=== PATIENT | male | born 1955 | race Caucasian/White ===

== ENCOUNTER 2020-01-04 07:57 | Inpatient (IN) | payer BC, OTHER ==
[2020-01-04] MEDS ORDERED: ASPIRIN 81 MG PO STA (08:14)
[2020-01-04] MEDS ORDERED: HEPARIN SODIUM,PORCINE 5,000 UNIT/ML 1 ML VIAL IV STA (08:14)
[2020-01-04] MEDS ORDERED: SODIUM CHLORIDE 0.9% 1,000 ML IV STA (08:14)
[2020-01-04] MEDS ORDERED: NITROGLYCERIN SL TABS 0.4 MG TAB SUBLINGUAL STA (08:14)
[2020-01-04] MEDS ORDERED: fentaNYL (PF) 50 MCG/ML 2 ML AMP ONE (08:30)
[2020-01-04 08:33] LABS: Basophils # (A) 0.1 k/uL (0-0.2); Basophils % (A) 1 %; Eosinophils # (A) 0.1 k/uL (0-0.7); Eosinophils % (A) 1 %; HCT 53.8 % (39.0-53.0); HGB 18.9 gm/dL (13.0-17.5); Lymphocytes # (A) 2.6 k/uL (1.0-4.8); Lymphocytes % (A) 21 %; MCH 31.9 pg (25.0-35.0); MCHC 35.2 g/dL (31.0-37.0); MCV 90.4 fL (80.0-100.0); Mean Platelet Volume 6.8; Monocytes # (A) 0.7 k/uL (0-1.0); Monocytes % (A) 5 %; Neutrophils # (A) 8.6 k/uL (1.3-7.7); Neutrophils % (A) 69 %; Platelet Count 305 k/uL (150-450); RBC 5.95 m/uL (4.30-5.90); RDW 12.9 % (11.5-15.5); WBC 12.4 k/uL (3.8-10.6)
--- NOTE | 2020-01-04 08:37 | XR ---
EXAMINATION TYPE: XR chest 1V portable DATE OF EXAM: 01/04/2020 HISTORY: Shortness of breath. COMPARISON: None. TECHNIQUE: Single view of the chest is submitted. FINDINGS: Demonstrated are scattered senescent parenchymal change. There is no evidence for focal infiltrate. The heart is stable. Hilar and mediastinal structures are within normal limits. Degenerative changes are seen of the dorsal spine. IMPRESSION: 1. Chronic changes without evidence for acute pulmonary disease.
--- NOTE | 2020-01-04 08:37 | ED ---
Chest Pain HPI - General Chief Complaint: Chest Pain Stated Complaint: Chest pain, L arm numbness Time Seen by Provider: 01/04/20 08:07 Source: patient, RN notes reviewed Mode of arrival: ambulatory Limitations: no limitations - History of Present Illness Initial Comments: This is a 64-year-old male with a benign past medical history was a nonsmoker been having intermittent episodes of midsternal chest pain it feels like indigestion for the past 2 days. He has been intermittent. He states this morning it recurred and was 78/10 severity associated with some diaphoresis and shortness of breath. It does radiate toward the left arm. No prior episodes of this in the past. No overt nausea vomiting he states that first started it was lasting perhaps 1-2 minutes. Now is lasting longer when it comes on. Currently his pain is 6-7/10 in severity and later in the interview it did go to 0 briefly. No other complaints no other modifying factors MD Complaint: chest pain - Related Data Home Medications Medication Instructions Recorded Confirmed Cholecalciferol [Vitamin D3 (25 1,000 unit PO DAILY 01/04/20 01/04/20 Mcg = 1000 Iu)] Fish Oil/Dha/Epa [Fish Oil 1,200 1 cap PO DAILY 01/04/20 01/04/20 mg Fish Oil] Allergies Allergy/AdvReac Type Severity Reaction Status Date / Time No Known Allergies Allergy Verified 01/04/20 08:33 Review of Systems ROS Statement: Those systems with pertinent positive or pertinent negative responses have been documented in the HPI. ROS Other: All systems not noted in ROS Statement are negative. EKG Findings - EKG Results: EKG: interpreted by HANNAH, sinus rhythm (Sinus rhythm rate of 1:15 VT interval 176 QRS duration 94 QT since QTC 360/498 there is evidence of septal infarct with evidence of ischemic changes in the inferior and anterolateral leads.) Past Medical History Past Medical History: Skin Disorder Additional Past Medical History / Comment(s): Pre-cancer cell tx's History of Any Multi-Drug Resistant Organisms: None Reported Additional Past Surgical History / Comment(s): Pilonidal cyst Past Anesthesia/Blood Transfusion Reactions: No Reported Reaction Past Psychological History: No Psychological Hx Reported Smoking Status: Never smoker Past Alcohol Use History: Occasional, Rare Past Drug Use History: None Reported - Past Family History Mother Family Medical History: Cancer Additional Family Medical History / Comment(s): Brain CA General Exam - General Exam Comments Initial Comments: This is a well-developed well-nourished awake alert oriented times 3 male Limitations: no limitations General appearance: alert, anxious Head exam: Present: atraumatic, normocephalic, normal inspection Eye exam: Present: normal appearance, PERRL, EOMI. Absent: scleral icterus, conjunctival injection, periorbital swelling ENT exam: Present: normal exam, mucous membranes moist Neck exam: Present: normal inspection, full ROM, other (No stridor JVD or bruits). Absent: tenderness, meningismus, lymphadenopathy Respiratory exam: Present: normal lung sounds bilaterally. Absent: respiratory distress, wheezes, rales, rhonchi, stridor Cardiovascular Exam: Present: regular rate, normal rhythm, normal heart sounds. Absent: systolic murmur, diastolic murmur, rubs, gallop, clicks GI/Abdominal exam: Present: soft, normal bowel sounds. Absent: distended, tenderness, guarding, rebound, rigid Extremities exam: Present: normal inspection, full ROM, normal capillary refill. Absent: tenderness, pedal edema, joint swelling, calf tenderness Back exam: Present: normal inspection Neurological exam: Present: alert, oriented X3, CN II-XII intact Psychiatric exam: Present: normal affect, normal mood Skin exam: Present: warm, dry, intact, normal color. Absent: rash Course Vital Signs 01/04/20 08:01 Temperature 97.8 F Pulse Rate 110 H Respiratory 18 Rate Blood Pressure 214/147 O2 Sat by Pulse 100 Oximetry - Reevaluation(s) Reevaluation #1: 01/04/20 08:34 A STEMI alert was called. Dr. Mckeon did respond to the emergency department. Patient will go to the [facility]. Reevaluation #2: 01/04/20 08:35 I did discuss the findings with the patient as well as with his who was present. Reevaluation #3: 01/04/20 08:35 No old EKGs for comparison Reevaluation #4: 01/04/20 08:35 I did discuss the case with Dr. Rashid who does cover Dr. Coleman. Critical Care Time Critical Care Time: Yes Total Critical Care Time: 31 Critical Care Time: This does include initial presentation with history physical orders of labs and x-rays. Review of the EKG discussion with Dr. Mckeon and with Dr. Rashid multiple reevaluation the patient prior to discharge from the ER. Review of old charting that was available and documentation of the above. Disposition Clinical Impression: ST elevation myocardial infarction (STEMI), Chest pain, Unstable angina pectoris Disposition: ADMITTED IP TO THIS HOSP Condition: Serious Referrals: Jeny Montemayor MD [Primary Care Provider] - 1-2 days
--- NOTE | 2020-01-04 08:41 | P.CRDCN ---
History of Present Illness Consult date: 01/04/20 History of present illness: CHIEF COMPLAINT: Chest pain HISTORY OF PRESENT ILLNESS: 64 year old male who denies any significant past medical history. 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 Patient states he began having chest pain on Tuesday. He states that he thought the pain was related to heartburn so he did not seek medical treatment. However he states the pain persisted so he came to the emergency room for further evaluation. He denies radiation. He denies nausea or vomiting. Denies shortness of breath. The patient had an EKG completed with evidence of a STEMI. At the time of my examination in the ER, he is not having chest pain. DIAGNOSTICS: EKG reveals sinus rhythm with ST elevation in lead I, AVL, V1-V4 Chest xray chronic changes without evidence for acute pulmonary disease Laboratory data: Unavailable at the time of this dictation Current home cardiac medications include none REVIEW OF SYSTEMS: At the time of my exam: CONSTITUTIONAL: Denies fever or chills. HEENT: Denies blurred vision, vision changes, or eye pain. Denies hemoptysis CARDIOVASCULAR: Denies chest pain, orthopnea, PND or palpitations RESPIRATORY: No shortness of breath. GASTROINTESTINAL: Denies abdominal pain. Denies nausea or vomiting. HEMATOLOGIC: Denies bleeding disorders. GENITOURINARY: Denies any blood in urine. SKIN: Denies pruitis. Denies rash. PHYSICAL EXAM: VITAL SIGNS: Reviewed. GENERAL: Well-developed in no acute distress. HEENT: Head is normocephalic. Pupils are equal, round. Sclerae anicteric. Mucous membranes of the mouth are moist. Neck supple. No JVD or thyromegaly LUNGS: Respirations even and unlabored. Lungs essentially clear to auscultation bilaterally. HEART: Regular rate and rhythm. S1 and S2 heard. ABDOMEN: Soft. Nondistended. Nontender. EXTREMITIES: Normal range of motion. No clubbing or cyanosis. Peripheral pulses intact. No lower extremity edema NEUROLOGIC: Awake and alert. Oriented x 3. ASSESSMENT: Chest pain STEMI PLAN: Patient examined in the ER by Dr. Mckeon. Patients EKG shows evidence of STEMI. Patient was advised to undergo emergent cardiac catheterization. The risks and benefits were explained to the patient in detail. The patient is agreeable. Nurse practitioner note has been reviewed by physician. Signing provider agrees with the documented findings, assessment, and plan of care. Past Medical History Past Medical History: Skin Disorder Additional Past Medical History / Comment(s): Pre-cancer cell tx's History of Any Multi-Drug Resistant Organisms: None Reported Additional Past Surgical History / Comment(s): Pilonidal cyst Past Anesthesia/Blood Transfusion Reactions: No Reported Reaction Past Psychological History: No Psychological Hx Reported Smoking Status: Never smoker Past Alcohol Use History: Occasional, Rare Past Drug Use History: None Reported - Past Family History Mother Family Medical History: Cancer Additional Family Medical History / Comment(s): Brain CA Medications and Allergies Home Medications Medication Instructions Recorded Confirmed Type Cholecalciferol [Vitamin D3 (25 1,000 unit PO DAILY 01/04/20 01/04/20 History Mcg = 1000 Iu)] Fish Oil/Dha/Epa [Fish Oil 1,200 1 cap PO DAILY 01/04/20 01/04/20 History mg Fish Oil] Allergies Allergy/AdvReac Type Severity Reaction Status Date / Time No Known Allergies Allergy Verified 01/04/20 08:33 Physical Exam Vitals: Vital Signs Temp Pulse Resp BP Pulse Ox 01/04/20 08:01 97.8 F 110 H 18 214/147 100 Intake and Output 01/03/20 01/04/20 01/04/20 22:59 06:59 14:59 Other: Weight 84.822 kg Results 01/04/20 08:22 01/04/20 08:22 Current Medications Generic Name Dose Route Start Last Admin Trade Name Freq PRN Reason Stop Dose Admin Sodium Chloride 1,000 mls @ 100 mls/hr 01/04/20 08:14 01/04/20 08:24 Saline 0.9% IV 01/04/20 18:13 100 mls/hr .Q10H STA Administration Intake and Output 01/03/20 01/04/20 01/04/20 22:59 06:59 14:59 Other: Weight 84.822 kg Patient Weight 01/05/20 06:59 Weight 84.822 kg
[2020-01-04 08:42] LABS: ALT 31 U/L (4-49); African American GFR (CKD) >90 (>60 ml/min/1.73 sqM); Albumin 5.1 g/dL (3.5-5.0); Anion Gap 13 mmol/L; Blood Urea Nitrogen 14 mg/dL (9-20); Calcium 9.9 mg/dL (8.4-10.2); Carbon Dioxide 23 mmol/L (22-30); Chloride 103 mmol/L (98-107); Creatine Kinase 409 U/L (55-170); Glucose 130 mg/dL (74-99); Lipase 72 U/L (23-300); Non-African American GFR(CKD) 79 (>60 ml/min/1.73 sqM); Sodium 139 mmol/L (137-145); Total Bilirubin 1.2 mg/dL (0.2-1.3); Total Protein 9.4 g/dL (6.3-8.2)
[2020-01-04] MEDS ORDERED: IV FLUID CONTINUATION 1,000 ML IV ONE (08:44)
[2020-01-04 08:45] LABS: AST 83 U/L (17-59); Alkaline Phosphatase 109 U/L (38-126); Magnesium 2.3 mg/dL (1.6-2.3); Potassium 4.5 mmol/L (3.5-5.1)
[2020-01-04] MEDS ORDERED: ATORVASTATIN 80 MG TAB PO STA (08:46)
[2020-01-04] MEDS ORDERED: fentaNYL (PF) 50 MCG/ML 2 ML AMP IVP ONE (08:53)
[2020-01-04] MEDS ORDERED: LIDOCAINE 1% INJ 10MG/ML (20 ML MDV) SQ ONE (08:56)
[2020-01-04] MEDS ORDERED: MIDAZOLAM 2 MG/2 ML VIAL IVP ONE (08:57)
[2020-01-04 08:59] LABS: D-Dimer 0.24 mg/L FEU (<0.60); Partial Thromboplastin Time 23.6 sec (22.0-30.0); Prothrombin Time 10.6 sec (9.0-12.0)
[2020-01-04] MEDS ORDERED: VERAPAMIL SYRINGE (5 MG/10 ML) INTRAARTER ONE (09:00)
[2020-01-04] MEDS ORDERED: TICAGRELOR 90 MG TAB ONE (09:08)
[2020-01-04] MEDS ORDERED: BIVALIRUDIN BOLUS 250 MG/50 ML IV ONE (09:10)
[2020-01-04] MEDS ORDERED: TICAGRELOR 90 MG TAB PO ONE (09:10)
[2020-01-04] MEDS ORDERED: BIVALIRUDIN 250 MG in SODIUM CHLORIDE 0.9% 50 ML IV ONE (09:11)
[2020-01-04] MEDS ORDERED: NITROGLYCERIN 1000MCG/10ML SYRINGE INTRACORON ONE (09:12)
[2020-01-04] MEDS ORDERED: IOPAMIDOL-370 125ML BTL INJ ONE (09:18)
[2020-01-04] MEDS ORDERED: IOPAMIDOL-370 100ML BTL INJ ONE (09:30)
[2020-01-04] MEDS ORDERED: ZOLPIDEM 5 MG TAB PO PRN (09:44)
[2020-01-04] MEDS ORDERED: RX INFO: IV CONTRAST WAS GIVEN 1 EACH MISC MISCELLANE PRN (09:44)
[2020-01-04] MEDS ORDERED: MAG HYDROX/AL HYDROX/SIMETH 30 ML CUP PO PRN (09:44)
[2020-01-04] MEDS ORDERED: NITROGLYCERIN SL TABS 0.4 MG TAB SUBLINGUAL PRN (09:44)
[2020-01-04] MEDS ORDERED: ATROPINE SULFATE 0.1 MG/ML 10ML SYRINGE IV PRN (09:44)
[2020-01-04] MEDS ORDERED: SODIUM CHLORIDE 0.9% 1,000 ML IV SCH (09:45)
--- NOTE | 2020-01-04 13:13 | PTCA ---
PERCUTANEOUSTRANS CORORONARY ANGIOGRAPHY Mr. Vaughn is a 64-year-old male who presented with an acute anterior myocardial infarction and underwent cardiac catheterization and was found to have subtotally occluded proximal LAD. In view of that, recommendation made regarding angioplasty and stenting. The procedures, risks, and complication were discussed with the patient who was in full understanding and agreement. PROCEDURE: A 0.014 balanced medium weight J-wire was advanced across the lesion, positioned in the distal LAD. Subsequently 2.5 x 12 mm NC balloon was advanced and one inflation at 10 atmospheres was done. Following that, the balloon was removed and a 2.75 x 18 mm Xience Lorna stent was deployed at 16 atmospheres. Following that the balloon was removed. A 3.0 x 12 mm NC Trek balloon was advanced and one inflation at 14 atmospheres was done in the proximal segment of the stent. Following that, right coronary angiography was performed. Following that, catheter and sheath were removed. Hemostasis was obtained with deployment of a TR band. There were no immediate complications. Patient was returned to his room in stable condition. Of note, the patient received Angiomax per protocol as well as oral loading dose of Brilinta. His chest discomfort resolved at the end of the procedure. RESULTS: Successful stenting of the proximal LAD with reduction of stenosis from 99% to 0%. RECOMMENDATION: Patient will be continued on aspirin, Brilinta, beta blockers and statin. The importance of dual antiplatelet treatment were discussed with the patient and his family and they consented and are in agreement. DURATION OF SEDATION: 34 minutes. MMREGINEL / GEON: [id number] /
--- NOTE | 2020-01-04 13:13 | CC ---
CARDIAC CATHETERIZATION REPORT Mr. Vaughn is a 64-year-old male with no prior documented history of coronary artery disease who presented with an acute episode of chest discomfort with evidence consistent with anterior wall myocardial infarction. In view of that, recommendation was made regarding cardiac catheterization. The procedures, risks, and complications were discussed with the patient who is in full understanding and agreement. PROCEDURE: Patient was brought to [facility] maintenance lab[facility] in a fasting semi-sedated state after receiving fentanyl and Benadryl and achieving moderate conscious sedated state. Using Xylocaine anesthesia and Seldinger technique, a 6-Brazilian sheath was introduced in the right radial artery. Left coronary angiography performed using 6-Brazilian LBU 3.75 guiding catheter after obtaining images of the left anterior descending artery and performing angioplasty and stenting. A 5-Brazilian 3.5 bend right Mari catheter was introduced into the system and images of the right coronary artery was performed, the right Mari catheter was used to cross the aortic valve and left ventricular end-diastolic pressure was calculated. Next, the catheter and sheath were removed. Hemostasis was obtained with deployment of a TR band. There was no immediate complication. Patient is returned to his room in stable condition. FINDINGS: LEFT MAIN: This is a large-sized vessel, bifurcating into left circumflex, left main descending artery. Left main coronary artery has no evidence of high-grade stenosis. LEFT ANTERIOR DESCENDING ARTERY: This is a large-sized vessel reaching toward the apex with a wraparound apex segment giving rise to a large diagonal branch. In the proximal LAD, there is tubular lesion of 99% stenosis with slow flow in the distal LAD. LEFT CIRCUMFLEX: This is a nondominant vessel giving rise to 3 obtuse marginal branches, the second and 3rd ones are the largest in caliber. The left circumflex as well as branches have no evidence of obstructive coronary artery disease. RIGHT CORONARY ARTERY: This is a large dominant vessel bifurcating into distally PDA and posterolateral segmental branches. The right coronary artery as well as branches have no evidence of obstructive coronary artery disease. LEFT VENTRICULOGRAM: Left ventriculogram was not performed. HEMODYNAMICS: There was no gradient across the aortic valve. The ventricular end-diastolic pressure was 6-10 mmHg. CONCLUSION: Subtotally occluded proximal LAD with slow flow in the distal vessel. RECOMMENDATION: In view of finding anatomy, I recommend proceeding with angioplasty and stenting of the left anterior descending artery. The procedures, risks, benefits and complication were discussed with the patient who is in full understanding and agreement. MMODL / IJN: [id number] /
[2020-01-04 13:50] VITALS: BMI 26.0
[2020-01-04] MEDS: METOPROLOL TARTRATE 25 MG TAB PO SCH ×2 (14:12→21:52)
--- NOTE | 2020-01-04 15:58 | P.HPIM ---
History of Present Illness H&P Date: 01/04/20 Chief Complaint: Chest pain Hieu Boyd, is a 64-year-old male, who presented to [facility] emergency room with a chief complaint of chest pain, patient stated that he has been having midsternal discomfort for the last 2 days on and off this morning patient had worse pain up to 8-10 in severity, patient was also having shortness of breath and sweating patient decided to come to emergency room. 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 Patient was seen and examined in the ICU post procedure he is alert and oriented 3 in no apparent distress he is currently chest pain-free he denies any symptoms there is no fever or chills no headache or dizziness no chest pain no shortness of breath no cough no nausea or vomiting no abdominal pain no diarrhea no blood in the stools no burning with urination no frequency or urgency and no hematuria. Patient denies any previous history of coronary artery disease he denies any significant past medical history. He has a known history of diverticulosis, and history of colon polyps otherwise he denies any significant history he does not take any prescription medications at home he stated that he never smoked in the past. Past Medical History Past Medical History: Skin Disorder Additional Past Medical History / Comment(s): Pre-cancer cell tx's History of Any Multi-Drug Resistant Organisms: None Reported Additional Past Surgical History / Comment(s): Pilonidal cyst Past Anesthesia/Blood Transfusion Reactions: No Reported Reaction Smoking Status: Never smoker - Past Family History Brother(s) Family Medical History: AICD/Pacemaker, Diabetes Mellitus Mother Family Medical History: Cancer Additional Family Medical History / Comment(s): Brain CA Medications and Allergies Home Medications Medication Instructions Recorded Confirmed Type Cholecalciferol [Vitamin D3 (25 1,000 unit PO DAILY 01/04/20 01/04/20 History Mcg = 1000 Iu)] Fish Oil/Dha/Epa [Fish Oil 1,200 1 cap PO DAILY 01/04/20 01/04/20 History mg Fish Oil] Allergies Allergy/AdvReac Type Severity Reaction Status Date / Time No Known Allergies Allergy Verified 01/04/20 08:33 Physical Exam Vitals: Vital Signs Temp Pulse Pulse Resp BP BP Pulse Ox 01/04/20 15:00 92 12 175/111 98 01/04/20 14:00 89 14 164/97 98 01/04/20 13:29 87 98 01/04/20 13:00 94 17 170/99 98 01/04/20 12:00 98.0 F 92 14 98 01/04/20 11:31 94 18 134/91 98 01/04/20 11:29 87 134/91 99 01/04/20 10:30 94 18 125/62 97 01/04/20 10:16 93 18 137/76 96 01/04/20 10:00 92 18 138/77 96 01/04/20 09:46 97.6 F 89 18 140/80 96 01/04/20 08:52 97.8 F 106 H 18 100 01/04/20 08:01 97.8 F 110 H 18 214/147 100 Intake and Output 01/04/20 01/04/20 01/04/20 06:59 14:59 22:59 Intake Total 631 Output Total 600 Balance 31 Intake: IV 295 Sodium Chloride 0.9% 1, 225 000 ml @ 75 mls/hr IV . [id number] [facility] Rx#:[id number] Oral 336 Output: Urine 600 Other: Weight 84.822 kg 84.822 kg In general patient is alert and oriented 3 in no apparent distress HEENT head normocephalic and atraumatic Neck is supple no JVD no goiter no lymphadenopathy no carotid bruit Chest exam is clear to auscultation no crackles no wheezing Cardiac exam reveals regular heart sounds S1 and S2 no gallops no murmurs Abdomen is soft nontender no organomegaly with normal bowel sounds Extremity exam reveals no edema no cyanosis or clubbing Neurological examination reveals no gross focal deficit Results CBC & Chem 7: 01/04/20 08:22 01/04/20 08:22 Labs: Abnormal Lab Results - Last 24 Hours (Table) 01/04/20 01/04/20 01/04/20 Range/Units 08:22 08:22 08:22 WBC 12.4 H (3.8-10.6) k/uL RBC 5.95 H (4.30-5.90) m/uL Hgb 18.9 H (13.0-17.5) gm/dL Hct 53.8 H (39.0-53.0) % Neutrophils # 8.6 H (1.3-7.7) k/uL Glucose 130 H (74-99) mg/dL AST 83 H (17-59) U/L Creatine Kinase 409 H (55-170) U/L Troponin I 2.580 H* (0.000-0.034) ng/mL Total Protein 9.4 H (6.3-8.2) g/dL Albumin 5.1 H (3.5-5.0) g/dL 01/04/20 Range/Units 12:50 WBC (3.8-10.6) k/uL RBC (4.30-5.90) m/uL Hgb (13.0-17.5) gm/dL Hct (39.0-53.0) % Neutrophils # (1.3-7.7) k/uL Glucose (74-99) mg/dL AST (17-59) U/L Creatine Kinase (55-170) U/L Troponin I 4.920 H* (0.000-0.034) ng/mL Total Protein (6.3-8.2) g/dL Albumin (3.5-5.0) g/dL Thrombosis Risk Factor Assmnt - Choose All That Apply Each Factor Represents 1 point: Acute CO Other Risk Factors: No Thrombosis Risk Factor Assessment Total Risk Factor Score: 1 Thrombosis Risk Factor Assessment Level: Low Risk Assessment and Plan Plan: ST elevation myocardial infarction Patient underwent cardiac catheterization with angioplasty and stent placement to the proximal LAD Currently he is admitted to intensive care unit he was started on aspirin, Lipitor, lisinopril, Lopressor, Brillinta, Aldactone, and sublingual nitroglycerin Cardiology are following Will follow during this admission
--- NOTE | 2020-01-04 18:34 | LTR ---
01/04/2020 RE: Hieu Vaughn (53) Dear Dr. Montemayor: I had the pleasure to perform cardiac catheterization, coronary angioplasty and stenting on Mr. Vaughn at [facility] on 01/04/2020. A full copy of the procedure note will be forwarded to you. Briefly, he underwent successful stenting of his proximal LAD. I am hopeful that this procedure will stabilize his status. I will keep you updated on his progress. Thank you again for allowing me to participate in the management of his care. Please free free to call with any questions. Sincerely yours, Shan Mckeon M.D. JS / SHELLY: [id number] /
[2020-01-04] MEDS: TICAGRELOR 90 MG TAB PO SCH (21:52)
[2020-01-04] MEDS: ATORVASTATIN 80 MG TAB PO SCH (21:52)
[2020-01-05 06:48] LABS: Glucose,Whole Blood 368 mg/dL (75-99)
[2020-01-05] MEDS ORDERED: SODIUM BICARB 8.4% 50 ML SYR (1 MEQ/ML) ONE ×2 (08:30→08:35)
[2020-01-05] MEDS: METOPROLOL TARTRATE 25 MG TAB PO SCH ×2 (10:13→20:04)
[2020-01-05] MEDS: TICAGRELOR 90 MG TAB PO SCH ×2 (10:14→20:04)
[2020-01-05] MEDS: SPIRONOLACTONE 25 MG TAB PO SCH (10:14)
[2020-01-05] MEDS: ASPIRIN 81 MG PO SCH (10:14)
[2020-01-05 10:25] LABS: African American GFR (CKD) >90 (>60 ml/min/1.73 sqM); Anion Gap 9 mmol/L; Blood Urea Nitrogen 14 mg/dL (9-20); Calcium 9.6 mg/dL (8.4-10.2); Carbon Dioxide 26 mmol/L (22-30); Chloride 104 mmol/L (98-107); Cholesterol 266 mg/dL (<200); Glucose 124 mg/dL (74-99); HDL Cholesterol 56 mg/dL (40-60); LDL Cholesterol,Calculated 177 mg/dL (0-99); Non-African American GFR(CKD) 79 (>60 ml/min/1.73 sqM); Potassium 4.3 mmol/L (3.5-5.1); Sodium 139 mmol/L (137-145); Triglycerides 167 mg/dL (<150)
[2020-01-05 11:20] LABS: Glucose,Whole Blood 379 mg/dL (75-99)
[2020-01-05 11:53] LABS: Glucose,Whole Blood 104 mg/dL (75-99)
--- NOTE | 2020-01-05 12:00 | ECHOF ---
Referral Reason:mi MEASUREMENTS -------- HEIGHT: 180.3 cm WEIGHT: 86.2 kg BP: IVSd: 1.4 cm (0.6 - 1.1) LVIDd: 4.1 cm (3.9 - 5.3) LVPWd: 1.3 cm (0.6 - 1.1) EDV(Teich): 75 ml IVSs: 1.7 cm LVIDs: 3.6 cm LVPWs: 1.5 cm %IVS Thck: 21 % ESV(Teich): 54 ml EF(Teich): 28 % %FS: 13 % SV(Teich): 21 ml RVIDd: 1.8 cm (< 3.3) IVC: 18.21 mm LVLd A4C: 7.8 cm LVEDV MOD A4C: 74 ml LVLs A4C: 8.0 cm LVESV MOD A4C: 47 ml LVEF MOD A4C: 36 % SV MOD A4C: 27 ml LALs A4C: 4.4 cm LAAs A4C: 12.5 cm LAESV A-L A4C: 30 ml LAESV MOD A4C: 27 ml LALs A2C: 4.1 cm LAAs A2C: 14.7 cm LAESV A-L A2C: 45 ml LAESV MOD A2C: 42 ml LAESV(A-L): 38 ml LAESV Index (A-L): 18.53 ml/m Ao Diam: 3.1 cm (2.0 - 3.7) LA Diam: 2.9 cm (2.7 - 3.8) AV Cusp: 1.9 cm (1.5 - 2.6) EPSS: 0.4 cm MV E Ike: 0.78 m/s MV DecT: 169 ms MV Dec [place]: 4.6 m/s MV A Ike: 0.77 m/s MV E/A Ratio: 1.01 MV PHT: 49 ms MR Vmax: 2.79 m/s MR maxP.04 mmHg AV Vmax: 1.01 m/s AV maxP.08 mmHg TR Vmax: 0.89 m/s TR maxP.15 mmHg RAP: 5.00 mmHg RVSP: 8.15 mmHg MV EF SLOPE: 136.78 mm/s (70 - 150) MV EXCURSION: 16.31 mm (> 18.000) FINDINGS -------- This was a technically adequate study. The left ventricular size is normal. There is moderate concentric left ventricular hypertrophy. O verall left ventricular systolic function is moderate-severely impaired with, an EF between 30 - 35 % . Normal LAP Grade 1 Diastolic Dysfunction. Apical anterior LV wall motion is hypokinetic. Api kaylin lateral LV wall motion is hypokinetic. Apical inferior LV wall motion is hypokinetic. Apica l septum LV wall motion is hypokinetic. The right ventricle is normal in size. The left atrial size is normal. Normal LA size by volume 22+/-6 ml/m2. The right atrial size is normal. Lumason used The aortic valve was not well visualized. The mitral valve is normal. There is trace mitral regurgitation. The tricuspid valve appears structurally normal. Trace tricuspid regurgitation present. Right brennon tricular systolic pressure is normal at < 35 mmHg. The pulmonic valve was not well visualized. The aortic root size is normal. Normal inferior vena cava with normal inspiratory collapse consistent with estimated right atrial pre ssure of 5 mmHg. There is no pericardial effusion. CONCLUSIONS -------- 1. The left ventricular size is normal. 2. There is moderate concentric left ventricular hypertrophy. 3. Overall left ventricular systolic function is moderate-severely impaired with, an EF between 30 - 35 %. 4. Normal LAP Grade 1 Diastolic Dysfunction. 5. Apical anterior LV wall motion is hypokinetic. 6. Apical lateral LV wall motion is hypokinetic. 7. Apical inferior LV wall motion is hypokinetic. 8. Apical septum LV wall motion is hypokinetic. 9. There is trace mitral regurgitation. 10. Trace tricuspid regurgitation present. 11. There is no pericardial effusion. NET PROGRAMMER: Korina Livingston [facility]
--- NOTE | 2020-01-05 14:08 | P.PN ---
Subjective Progress Note Date: 01/05/20 CHIEF COMPLAINT: Chest pain HISTORY OF PRESENT ILLNESS: Patient is status post cardiac catheterization with PCI to the LAD. Patient examined this morning at the bedside. Patient denies chest pain or pressure. He denies shortness of breath. Patient has been up ambulating in his room. Vital signs are stable. Echocardiogram computed reveals EF 30-35% LV wall hypokinesis, trace mitral regurgitation and trace tricuspid regurgitation. PHYSICAL EXAM: VITAL SIGNS: Reviewed. GENERAL: Well-developed in no acute distress. HEENT: Head is normocephalic. Pupils are equal, round. Sclerae anicteric. Mucous membranes of the mouth are moist. Neck supple. No JVD or thyromegaly LUNGS: Respirations even and unlabored. Lungs essentially clear to auscultation bilaterally. HEART: Regular rate and rhythm. S1 and S2 heard. EXTREMITIES: Normal range of motion. No clubbing or cyanosis. Peripheral pulses intact. No lower extremity edema. Right radial cath site with pulse present. NEUROLOGIC: Awake and alert. Oriented x 3. ASSESSMENT: Chest pain STEMI, status post PCI to LAD Ischemic cardiomyopathy, EF 30-35% PLAN: Continue current cardiac medications Anticipate discharge home tomorrow if patient remains stable Nurse practitioner note has been reviewed by physician. Signing provider agrees with the documented findings, assessment, and plan of care. Objective - Vital Signs Vital signs: Vital Signs Temp 97.8 F 01/05/20 08:00 Pulse 94 01/05/20 08:00 Resp 20 01/05/20 08:00 BP 135/76 01/05/20 08:00 Pulse Ox 98 01/05/20 08:00 Intake & Output 01/04/20 01/05/20 01/05/20 18:59 06:59 18:59 Intake Total 1553 550 360 Output Total 1600 500 Balance -47 50 360 Weight 84.822 kg 86.4 kg Intake: IV 595 375 Sodium Chloride 0.9% 1, 525 375 000 ml @ 75 mls/hr IV . [id number] [facility] Rx#:[id number] Oral 958 175 360 Output: Urine 1600 500 Other: Voiding Method Toilet Toilet # Voids 2 - Labs CBC & Chem 7: 01/04/20 08:22 01/05/20 09:36 Labs: Abnormal Lab Results - Last 24 Hours (Table) 01/04/20 01/04/20 01/05/20 Range/Units 16:04 20:19 06:46 Glucose (74-99) mg/dL POC Glucose (mg/dL) 368 H (75-99) mg/dL Troponin I 5.910 H* 5.840 H* (0.000-0.034) ng/mL Triglycerides (<150) mg/dL Cholesterol (<200) mg/dL LDL Cholesterol, Calc (0-99) mg/dL 01/05/20 01/05/20 01/05/20 Range/Units 09:36 11:19 11:51 Glucose 124 H (74-99) mg/dL POC Glucose (mg/dL) 379 H 104 H (75-99) mg/dL Troponin I (0.000-0.034) ng/mL Triglycerides 167 H (<150) mg/dL Cholesterol 266 H (<200) mg/dL LDL Cholesterol, Calc 177 H (0-99) mg/dL
--- NOTE | 2020-01-05 15:28 | P.PN ---
Subjective Progress Note Date: 01/05/20 Hieu Boyd, is a 64-year-old male, who presented to [facility] emergency room with a chief complaint of chest pain, patient stated that he has been having midsternal discomfort for the last 2 days on and off this morning patient had worse pain up to 8-10 in severity, patient was also having shortness of breath and sweating patient decided to come to emergency room. 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 Patient was seen and examined in the ICU post procedure he is alert and oriented 3 in no apparent distress he is currently chest pain-free he denies any symptoms there is no fever or chills no headache or dizziness no chest pain no shortness of breath no cough no nausea or vomiting no abdominal pain no diarrhea no blood in the stools no burning with urination no frequency or urgency and no hematuria. Patient denies any previous history of coronary artery disease he denies any significant past medical history. He has a known history of diverticulosis, and history of colon polyps otherwise he denies any significant history he does not take any prescription medications at home he stated that he never smoked in the past. On 01/05/2020 patient was seen and examined on the telemetry floor he is alert and oriented 3 in no apparent distress there is no fever or chills no headache or dizziness no chest pain no shortness of breath no cough no nausea or vomiting no abdominal pain no diarrhea and no urinary symptoms Objective - Vital Signs Vital signs: Vital Signs Temp 97.8 F 01/05/20 08:00 Pulse 80 01/05/20 12:00 Resp 20 01/05/20 12:00 BP 122/67 01/05/20 12:00 Pulse Ox 97 01/05/20 12:00 Intake & Output 01/04/20 01/05/20 01/05/20 18:59 06:59 18:59 Intake Total 1553 550 360 Output Total 1600 500 Balance -47 50 360 Weight 84.822 kg 86.4 kg Intake: IV 595 375 Sodium Chloride 0.9% 1, 525 375 000 ml @ 75 mls/hr IV . [id number] [facility] Rx#:[id number] Oral 958 175 360 Output: Urine 1600 500 Other: Voiding Method Toilet Toilet # Voids 2 1 - Exam In general patient is alert and oriented 3 in no apparent distress HEENT head normocephalic and atraumatic Neck is supple no JVD no goiter no lymphadenopathy no carotid bruit Chest exam is clear to auscultation no crackles no wheezing Cardiac exam reveals regular heart sounds S1 and S2 no gallops no murmurs Abdomen is soft nontender no organomegaly with normal bowel sounds Extremity exam reveals no edema no cyanosis or clubbing Neurological examination reveals no gross focal deficit - Labs CBC & Chem 7: 01/04/20 08:22 01/05/20 09:36 Labs: Abnormal Lab Results - Last 24 Hours (Table) 01/04/20 01/04/20 01/05/20 Range/Units 16:04 20:19 06:46 Glucose (74-99) mg/dL POC Glucose (mg/dL) 368 H (75-99) mg/dL Troponin I 5.910 H* 5.840 H* (0.000-0.034) ng/mL Triglycerides (<150) mg/dL Cholesterol (<200) mg/dL LDL Cholesterol, Calc (0-99) mg/dL 01/05/20 01/05/20 01/05/20 Range/Units 09:36 11:19 11:51 Glucose 124 H (74-99) mg/dL POC Glucose (mg/dL) 379 H 104 H (75-99) mg/dL Troponin I (0.000-0.034) ng/mL Triglycerides 167 H (<150) mg/dL Cholesterol 266 H (<200) mg/dL LDL Cholesterol, Calc 177 H (0-99) mg/dL Assessment and Plan Plan: 1. ST elevation myocardial infarction 2. Cardiomyopathy with ejection fraction of 30-35% Patient underwent cardiac catheterization with angioplasty and stent placement to the proximal LAD Currently he is admitted to intensive care unit he was started on aspirin, Lipitor, lisinopril, Lopressor, Brillinta, Aldactone, and sublingual nitroglycerin Cardiology are following Will follow during this admission
[2020-01-05] MEDS: lisinopriL 5 MG TAB PO SCH (20:04)
[2020-01-05] MEDS: ATORVASTATIN 80 MG TAB PO SCH (20:04)
[2020-01-06 03:36] VITALS: TEMP 97.9
[2020-01-06] MEDS: METOPROLOL TARTRATE 25 MG TAB PO SCH (08:05)
[2020-01-06] MEDS: TICAGRELOR 90 MG TAB PO SCH (08:05)
[2020-01-06] MEDS: ASPIRIN 81 MG PO SCH (08:06)
[2020-01-06] MEDS: lisinopriL 5 MG TAB PO SCH (08:06)
[2020-01-06] MEDS: SPIRONOLACTONE 25 MG TAB PO SCH (08:07)
[2020-01-06 08:19] LABS: Calcium 9.5 mg/dL (8.4-10.2); Potassium 4.9 mmol/L (3.5-5.1)
[2020-01-06 08:39] LABS: Basophils # (A) 0.1 k/uL (0-0.2); Basophils % (A) 1 %; Eosinophils # (A) 0.1 k/uL (0-0.7); Eosinophils % (A) 1 %; HCT 47.8 % (39.0-53.0); Lymphocytes # (A) 1.7 k/uL (1.0-4.8); Lymphocytes % (A) 18 %; MCH 30.7 pg (25.0-35.0); MCHC 33.6 g/dL (31.0-37.0); MCV 91.5 fL (80.0-100.0); Mean Platelet Volume 6.6; Monocytes # (A) 0.4 k/uL (0-1.0); Monocytes % (A) 4 %; Neutrophils # (A) 7.1 k/uL (1.3-7.7); Neutrophils % (A) 75 %; Platelet Count 332 k/uL (150-450); RBC 5.22 m/uL (4.30-5.90); RDW 12.9 % (11.5-15.5); WBC 9.6 k/uL (3.8-10.6)
[2020-01-06 08:57] VITALS: BP 125/65; PULSE 90; RESP 20
--- NOTE | 2020-01-06 11:12 | P.DS ---
Providers Date of admission: 01/04/20 08:38 Expected date of discharge: 01/06/20 Attending physician: Cat Rashid Consults: 01/04/20 09:44 Consult Physician Routine Consulting Provider: [facility] Consult Reason/Comments: Post Interventional patient Do you want consulting provider notified?: Already Contacted Primary care physician: Jeny Montemayor [facility] Course: Discharge diagnosis 1. ST elevation myocardial infarction with stent to the LAD. Maintained on Brilinta 2. Cardiomyopathy with ejection fraction of 30-35% 3. Hyperlipidemia. Patient started on statin Hospital course Hieu Boyd, is a 64-year-old male, who presented to [facility] emergency room with a chief complaint of chest pain, patient stated that he has been having midsternal discomfort for the last 2 days on and off this morning patient had worse pain up to 8-10 in severity, patient was also having shortness of breath and sweating patient decided to come to emergency room. Patient was evaluated in the emergency room vital exam on presentation revealed a temperature of 97.8 pulse 110 respiration 18 blood pressure 214/147 pulse ox 100% on room air, EKG revealed ST elevation in anterior leads and ST depression in inferior leads patient was taken immediately to the laborer pipeline he had evidence of 99% stenosis of the mid LAD he underwent angioplasty and stent placement and was subsequently admitted to the intensive care unit, troponin level on presentation was 2.58 BNP was 4970. Patient was seen and examined in the ICU post procedure he is alert and oriented 3 in no apparent distress he is currently chest pain-free he denies any symptoms there is no fever or chills no headache or dizziness no chest pain no shortness of breath no cough no nausea or vomiting no abdominal pain no diarrhea no blood in the stools no burning with urination no frequency or urgency and no hematuria. Patient denies any previous history of coronary artery disease he denies any significant past medical history. He has a known history of diverticulosis, and history of colon polyps otherwise he denies any significant history he does not take any prescription medications at home he stated that he never smoked in the past. On 01/05/2020 patient was seen and examined on the telemetry floor he is alert and oriented 3 in no apparent distress there is no fever or chills no headache or dizziness no chest pain no shortness of breath no cough no nausea or vomiting no abdominal pain no diarrhea and no urinary symptoms On 01/06/2020 patient is alert and oriented 3. Patient states he is very eager to go home. Discussed case with cardiology nurse practitioner patient may be discharged home on new medications of aspirin lipitor lisinopril Lopressor Brilinta and Aldactone. Patient educated at length about the importance of taking his medications and compliance. Also discussed importance of follow up with cardiology and PCP for further management. Patient did verbalize understanding. At this time patient denies any chest pain or shortness of breath. Patient denies nausea vomiting or diarrhea. Patient denies any urinary burning or frequency. Patient Condition at Discharge: Stable Plan - Discharge Summary Discharge Rx Participant: Yes New Discharge Prescriptions: New Spironolactone [Aldactone] 25 mg PO DAILY 30 Days #30 tab Aspirin 81 mg PO DAILY 30 Days #30 chew Ticagrelor [Brilinta] 90 mg PO BID 30 Days #60 tab Atorvastatin [Lipitor] 80 mg PO HS 30 Days #30 tab Metoprolol Tartrate [Lopressor] 25 mg PO BID 30 Days #60 tab lisinopriL [Zestril] 5 mg PO BID 30 Days #60 tab Continue Fish Oil/Dha/Epa [Fish Oil 1,200 mg Fish Oil] 1 cap PO DAILY Cholecalciferol [Vitamin D3 (25 Mcg = 1000 Iu)] 1,000 unit PO DAILY Discharge Medication List Cholecalciferol [Vitamin D3 (25 Mcg = 1000 Iu)] 1,000 unit PO DAILY 01/04/20 [History] Fish Oil/Dha/Epa [Fish Oil 1,200 mg Fish Oil] 1 cap PO DAILY 01/04/20 [History] Aspirin 81 mg PO DAILY 30 Days #30 chew 01/06/20 [Rx] Atorvastatin [Lipitor] 80 mg PO HS 30 Days #30 tab 01/06/20 [Rx] Metoprolol Tartrate [Lopressor] 25 mg PO BID 30 Days #60 tab 01/06/20 [Rx] Spironolactone [Aldactone] 25 mg PO DAILY 30 Days #30 tab 01/06/20 [Rx] Ticagrelor [Brilinta] 90 mg PO BID 30 Days #60 tab 01/06/20 [Rx] lisinopriL [Zestril] 5 mg PO BID 30 Days #60 tab 01/06/20 [Rx] Follow up Appointment(s)/Referral(s): Shan Mckeon MD [STAFF PHYSICIAN] - 1 Week Jeny Montemayor MD [Primary Care Provider] - 1-2 days Activity/Diet/Wound Care/Special Instructions: Activity as tolerated Diet heart healthy
--- NOTE | 2020-01-06 15:00 | P.PN ---
Subjective Progress Note Date: 01/06/20 CHIEF COMPLAINT: Chest pain HISTORY OF PRESENT ILLNESS: Patient is status post cardiac catheterization with PCI to the LAD. Patient examined this morning at the bedside. Patient denies chest pain or pressure. He denies shortness of breath. Patient has been up ambulating in his room. Vital signs are stable. PHYSICAL EXAM: VITAL SIGNS: Reviewed. GENERAL: Well-developed in no acute distress. HEENT: Head is normocephalic. Pupils are equal, round. Sclerae anicteric. Mucous membranes of the mouth are moist. Neck supple. No JVD or thyromegaly LUNGS: Respirations even and unlabored. Lungs essentially clear to auscultation bilaterally. HEART: Regular rate and rhythm. S1 and S2 heard. EXTREMITIES: Normal range of motion. No clubbing or cyanosis. Peripheral pulses intact. No lower extremity edema. Right radial cath site with pulse present. NEUROLOGIC: Awake and alert. Oriented x 3. ASSESSMENT: Chest pain STEMI, status post PCI to LAD Ischemic cardiomyopathy, EF 30-35% PLAN: Continue current cardiac medications Patient stable for discharge home today. He is to follow up on an outpatient basis. Nurse practitioner note has been reviewed by physician. Signing provider agrees with the documented findings, assessment, and plan of care. Objective - Vital Signs Vital signs: Vital Signs Temp 97.9 F 01/06/20 03:31 Pulse 90 01/06/20 08:00 Resp 20 01/06/20 08:00 BP 125/65 01/06/20 08:00 Pulse Ox 98 01/06/20 08:00 Intake & Output 01/05/20 01/06/20 01/06/20 18:59 06:59 18:59 Intake Total 600 236 Balance 600 236 Weight 85.9 kg Intake: Oral 600 236 Other: Voiding Method Toilet # Voids 1 3 1 - Labs CBC & Chem 7: 01/06/20 07:38 01/06/20 07:38 Labs: Abnormal Lab Results - Last 24 Hours (Table) 01/06/20 Range/Units 07:38 Sodium 136 L (137-145) mmol/L Glucose 152 H (74-99) mg/dL
== END 2020-01-06 12:26 | disposition home or self-care (01) | DRG 247 ==
LOC: EC 07:57 → 2SICU 08:38 → 3SCARD 01-05 00:49
PROVIDERS: ADMIT Internal Medicine; ATTEND Internal Medicine
PROC: 027034Z Dilation of Coronary Artery, One Artery with Drug-eluting Intraluminal Device, Percutaneous Approach (ICD-10-PCS; principal; 2020-01-04 08:21)
PROC: B2111ZZ Fluoroscopy of Multiple Coronary Arteries using Low Osmolar Contrast (ICD-10-PCS; principal; 2020-01-04 08:21)
PROC: 4A023N7 Measurement of Cardiac Sampling and Pressure, Left Heart, Percutaneous Approach (ICD-10-PCS; principal; 2020-01-04 08:21)
DX: I21.09 ST elevation (STEMI) myocardial infarction involving other coronary artery of anterior wall (principal); E78.5 Hyperlipidemia, unspecified; I25.5 Ischemic cardiomyopathy; I25.110 Atherosclerotic heart disease of native coronary artery with unstable angina pectoris; K57.90 Diverticulosis of intestine, part unspecified, without perforation or abscess without bleeding; Z87.19 Personal history of other diseases of the digestive system; Z86.010 Personal history of colon polyps; Z98.890 Other specified postprocedural states; Z80.8 Family history of malignant neoplasm of other organs or systems; Z83.3 Family history of diabetes mellitus
CPT/HCPCS: 36415; 71045; 80048; 80053; 80061; 82550; 83690; 83735; 83880; 84484; 85025; 85347; 85379; 85610; 85730; 93005; 93306; 93458; 96374; 96375; 99291